=== PATIENT | female | born 1930 | race Caucasian/White ===

== ENCOUNTER 2019-03-25 16:26 | Inpatient (IN) ==
[2019-03-25 18:51] LABS: BASO# 0.01 X1000 (0.0-0.2); BASO% 0.2 % (0.0-0.8); EOS# 0.08 X1000 (0.0-0.7); EOS% 1.3 % (0.0-10.0); HEMOGLOBIN 12.6 g/dL (12.0-16.0); LYMPH# 1.39 X1000 (1.2-3.4); LYMPH% 22.2 % (20.5-51.1); MCH 27.8 PG (27-31); MCHC 31.5 g/dL (33-37); MCV 88.3 FL (81-99); MONO# 0.49 X1000 (0.11-0.59); MONO% 7.8 % (1.7-9.3); MPV 9.8 FL (7.4-10.4); NEUT% 68.5 % (42.2-75.2); PLT 283 X1000 (130-400); RBC 4.53 XMIL (4.2-5.4); RDW 15.6 % (11.5-14.5); WBC 6.27 X1000 (4.8-10.8)
[2019-03-25] MEDS ORDERED: VANCOMYCIN 1 GM/NS 1 GM/250 ML IVPB IV ONE (18:58)
--- NOTE | 2019-03-25 19:02 | PROVIDER DOCUMENTATION ---
HPI-Musculoskeletal Pain/Inj - GENERAL Chief Complaint: Extremity Pain Stated Complaint: AFC REFERRAL TOE CELLULITIS Time Seen by Provider: 03/25/19 18:26 Source: patient, family (son at bedside) - HX OF PRESENT ILLNESS-MUSKULOSKELTAL Nature of Presenting Problem: 88 YO F pmh for neuropathy, follows with Dr. Wise- [facility], sent to ED by AF for non healing cellulitis of 3rd digit of right foot. Pt states she has been on PO abx x3 weeks but now has worsening redness. Denies fever, and no pain 2/2 to neuropathy. Denies DM. Quality of Pain: reports: none Onset/Duration: other (3 weeks) Timing: still present, getting worse Any recent injury?: No Locality of Occurance: Home Similar Symptoms Previously?: Yes Recently seen or treated by another doctor?: Yes Review of Systems - Adult - REVIEW OF SYSTEMS - ADULT Constitutional: denies: chills, fever Eyes: reports: no symptoms reported Ears, Nose, Mouth & Throat: reports: no symptoms reported Cardiovascular: denies: chest pain, edema Respiratory: denies: shortness of breath, wheezing Gastrointestinal: denies: nausea, vomiting Genitourinary: reports: no symptoms reported Musculoskeletal: reports: see HPI Integumentary: reports: see HPI Neurological: reports: no symptoms reported Past History - Adult - PAST MEDICAL HISTORY-ADULT Review of Records: reports: Old Records Reviewed, Social history reviewed & non- contributory. Major Childhood Illnesses: reports: denies history Cardiovascular: reports: A-Fib, CAD, CHF, HTN, murmur Respiratory: reports: denies history Gastrointestinal: reports: GERD Obstetrical/Gynecological: reports: denies history Genitourinary: reports: denies history Musculoskeletal: reports: other (neuropathy) Neurological: reports: denies history Psychiatric: reports: denies history Endocrine/Immune: reports: RA - PRIOR SURGERIES/PROCEDURES Surgical/Procedure History: reports: appendectomy, orthopedic (extremity) (toe Sx ), other (cataract Sx, eye Sx to correct a cross-eyed state, exploratory). denies: recent surgery - IMMUNIZATION STATUS Childhood Immunizations: UTD Flu Vaccine: UTD - FAMILY HISTORY Family History: reviewed, not pertinent - SOCIAL HISTORY Smoking: denies Substance Use: denies Living Situation: alone Physical Exam-Injury Related - Physical Exam-Injury Related Initial Vital Signs Reviewed: Yes General Appearance: appears well, alert, no apparent distress Eyes: PERRL/EOMI, pink conjunctivae, other (strabismus) Head, Ears, Nose, Mouth & Throat: normocephalic/atraumatic, moist mucous membranes Neck: full range of motion, supple Respiratory: lungs clear, normal breath sounds Cardiovascular: normal peripheral pulses, regular rate, rhythm Abdominal Exam: non tender, soft Extremity: other (right foot with multiple toe amputations and 3rd digit with swelling and erythema. Left foot also with second digit with swelling and erythema, and erythema to sole of foot as well on the ball of foot. good pedal pulses and ROM of toes.) Integumentary: other (as above) Neurologic: grossly normal Psych/Mental Status: normal mood/affect, oriented x 3 Progress - PLAN OF CARE/RESULTS Progress/Plan/Lab Results: Vital Signs - 8 hr 03/25/19 16:28 03/25/19 18:15 03/25/19 18:17 Temperature 98.1 F Pulse Rate 75 Respiratory Rate 16 Blood Pressure 175/76 186/87 O2 Sat by Pulse Oximetry 98 96 96 03/25/19 18:23 03/25/19 18:30 03/25/19 18:45 Temperature Pulse Rate Respiratory Rate Blood Pressure 180/70 O2 Sat by Pulse Oximetry 99 97 99 03/25/19 18:46 03/25/19 19:00 03/25/19 19:01 Temperature Pulse Rate Respiratory Rate Blood Pressure 170/70 187/55 O2 Sat by Pulse Oximetry 99 99 99 03/25/19 19:15 03/25/19 19:30 03/25/19 19:31 Temperature Pulse Rate Respiratory Rate Blood Pressure 170/86 O2 Sat by Pulse Oximetry 98 99 99 Laboratory Results - last 24 hr 03/25/19 03/25/19 18:22 18:22 WBC 6.27 RBC 4.53 Hgb 12.6 Hct 40.0 MCV 88.3 MCH 27.8 MCHC 31.5 L RDW Std Deviation 15.6 H Plt Count 283 MPV 9.8 Immature Gran % (Auto) 0.0 Neut % (Auto) 68.5 Lymph % (Auto) 22.2 [place] % (Auto) 7.8 Eos % (Auto) 1.3 Baso % (Auto) 0.2 Immature Gran # (Auto) 0.00 Neut # (Auto) 4.30 Lymph # (Auto) 1.39 [place] # (Auto) 0.49 Eos # (Auto) 0.08 Baso # (Auto) 0.01 Sodium 147 H Potassium 3.8 Chloride 108 H Carbon Dioxide 26 Anion Gap 13 BUN 20 Creatinine 0.8 Estimated GFR/1.73 m2 > 60 BUN/Creatinine Ratio 25 Glucose 99 Calculated Osmolality 295 Calcium 9.0 Total Bilirubin 0.27 AST 14 ALT 11 Alkaline Phosphatase 48 Total Protein 6.8 Albumin 4.2 Globulin 2.6 Albumin/Globulin Ratio 1.6 Orders Category Date Time Status FOOT COMPLETE LEFT [RAD] Stat Exams 03/25/19 20:02 Completed FOOT COMPLETE RIGHT [RAD] Stat Exams 03/25/19 20:02 Completed BLOOD CULTURE [BLDCUL] Stat Lab 03/25/19 19:15 Results CBC WITH ELECTRONIC DIFF [HEME] Stat Lab 03/25/19 18:22 Completed CMP [COMPREHENSIVE METABOLIC PANEL] [CHEM] Stat Lab 03/25/19 18:22 Completed Vancomycin 1 gm/Ns Med 03/25/19 18:58 Discontinued 1 gm in 250 ml IV NOW labs stable. admission for failing outpt abx therapy and possible osteomyelitis of toe of right foot. Result Diagrams: 03/25/19 18:22 03/25/19 18:22 - XRAY 1 XRAY: Left XRAY Study: Foot Impression: See EMR Report (EXAM: FOOT COMPLETE LEFT INDICATION: infection TECHNIQUE: 3 views COMPARISON: None. FINDINGS: There are mild IP joint degenerative changes. There is minimal bone spurring at the calcaneus and at the base of the fifth metatarsal. There is no discrete fracture, dislocation, or significant intrinsic osseous lesion, otherwise. Specifically, no discrete focal bony erosion is identified to indicate osteomyelitis by plain radiograph on the current study. There is minimal soft tissue edema associated with the hindfoot and ankle. IMPRESSION: Mild degenerative changes as described. No radiogr aphic evidence of osteomyelitis on the current study. Electronically signed by Frank Carbajal 03/25/2019 8:19 PM) 2 XRAY: Right XRAY Study: Foot Impression: See EMR Report (EXAM: FOOT COMPLETE RIGHT INDICATION: infection TECHNIQUE: 3 views COMPARISON: 09/18/2015 FINDINGS: Since the previous study, there has been amputation of the first and second toes at the proximal IP joints. There is a stable metallic screw fusing the IP joints of the third toe. There is slight irregularity involving the distal phalanx of the fourth toe that is not identified on the previous study. This is of unknown acuity. However, osteomyelitis cannot be excluded. A bone scan or MRI may be helpful if confirmation is necessary. There is mild bone spurring at the calcaneus and dorsal aspect of the midfoot that is unchanged. There is no discrete fracture, dislocation, or significant intrinsic osseous lesion, otherwise. There is mild soft tissue edema at the dorsum of the forefoot and around the ankle. IMPRESSION: 1.Interval amputation of the first and second toes at the proximal IP joints. 2.Subtle irregularity involving the distal phalanx of the fourth toe that appears more prominent than the previous study. Although it is of unknown acuity, this could indicate osteomyelitis. Please see above discussion.) - CONSULTS/PCP/HOSPITALIST Notification #1 *Consult/PCP/Hospitalist*: Dr. Son Time Discussed: 21:42 Consult Disposition: Will see in ED, Admit Departure - Departure Date of Disposition Decision: 03/25/19 Time of Disposition Decision: 21:45 DIAGNOSIS: Cellulitis of toe of left foot, Cellulitis of toe of right foot Disposition: ADMITTED INPATIENT 09 Certified Medical Emergency: Emergent Condition: Stable Referrals and Follow-Ups: Michael Lamb MD [Primary Care Provider] - - Critical Care Note This patient required my direct & personal management of CC.: No Attestation - Physician/ SHIN Attestation The physician spent face to face time with patient:: Yes Advanced Practice Provider documentation review:: Supervising physician onsite and consulted in the evaluation and care of this patient. The physician did have a face to face encounter with the patient.
[2019-03-25 19:34] LABS: AGAP 13; ALB/GLOB RATIO 1.6; ALBUMIN 4.2 g/dL (3.5-5.0); ALKALINE PHOSPHATASE 48 U/L (32-104); BUN 20 mg/dL (8-22); CHLORIDE 108 mmol/L (98-107); COSMO 295; CREATININE 0.8 mg/dL (0.5-0.9); ESTIMATED GFR > 60; GLUCOSE 99 mg/dL (70-104); GOT 14 U/L (10-30); GPT 11 U/L (10-36); POTASSIUM 3.8 mmol/L (3.5-5.1); SODIUM 147 mmol/L (136-145); TCO2 26 mmol/L (25-35); TOTAL BILIRUBIN 0.27 mg/dL (0.20-1.00); TOTAL PROTEIN 6.8 g/dL (6.3-8.3)
--- NOTE | 2019-03-25 20:21 | Diag Imaging Result Doc PS360 ---
EXAM: FOOT COMPLETE LEFT INDICATION: infection TECHNIQUE: 3 views COMPARISON: None. FINDINGS: There are mild IP joint degenerative changes. There is minimal bone spurring at the calcaneus and at the base of the fifth metatarsal. There is no discrete fracture, dislocation, or significant intrinsic osseous lesion, otherwise. Specifically, no discrete focal bony erosion is identified to indicate osteomyelitis by plain radiograph on the current study. There is minimal soft tissue edema associated with the hindfoot and ankle. IMPRESSION: Mild degenerative changes as described. No radiographic evidence of osteomyelitis on the current study. Electronically signed by Frank Carbajal 03/25/2019 8:19 PM
--- NOTE | 2019-03-25 20:27 | Diag Imaging Result Doc PS360 ---
EXAM: FOOT COMPLETE RIGHT INDICATION: infection TECHNIQUE: 3 views COMPARISON: 09/18/2015 FINDINGS: Since the previous study, there has been amputation of the first and second toes at the proximal IP joints. There is a stable metallic screw fusing the IP joints of the third toe. There is slight irregularity involving the distal phalanx of the fourth toe that is not identified on the previous study. This is of unknown acuity. However, osteomyelitis cannot be excluded. A bone scan or MRI may be helpful if confirmation is necessary. There is mild bone spurring at the calcaneus and dorsal aspect of the midfoot that is unchanged. There is no discrete fracture, dislocation, or significant intrinsic osseous lesion, otherwise. There is mild soft tissue edema at the dorsum of the forefoot and around the ankle. IMPRESSION: 1.Interval amputation of the first and second toes at the proximal IP joints. 2.Subtle irregularity involving the distal phalanx of the fourth toe that appears more prominent than the previous study. Although it is of unknown acuity, this could indicate osteomyelitis. Please see above discussion. Electronically signed by Frank Carbajal 03/25/2019 8:25 PM
[2019-03-25 22:16] LABS: URINE SOURCE CLEAN CATCH
[2019-03-25 22:22] LABS: BILIRUBIN URINE NEGATIVE (NEGATIVE); BLOOD URINE MODERATE (NEGATIVE); COLOR YELLOW; GLUCOSE URINE 150 mg/dL (NEGATIVE); KETONE URINE NEGATIVE (NEGATIVE); LEUKOCYTES URINE LARGE (NEGATIVE); NITRITE URINE NEGATIVE (NEGATIVE); PROTEIN URINE TRACE mg/dL (NEGATIVE); SP GRAVITY URINE 1.017; TURBIDITY URINE HAZY (CLEAR); UROBILINOGEN URINE NORMAL (NORMAL)
[2019-03-25 22:23] LABS: UR EPITHELIAL CELLS <10 /HPF (<10); URINE BACTERIA NEGATIVE /HPF; URINE RBC TNTC /HPF (<10); URINE WBC TNTC /HPF (<10)
[2019-03-25] MEDS ORDERED: ULTRAM PO PRN (23:36)
[2019-03-25] MEDS ORDERED: NEURONTIN PO PRN (23:36)
[2019-03-25] MEDS ORDERED: VANCOMYCIN IV PER PHARMACY MISC SCH (23:36)
[2019-03-25] MEDS ORDERED: PEPCID PO PRN (23:36)
[2019-03-25] MEDS ORDERED: DESYREL PO PRN (23:36)
[2019-03-25] MEDS ORDERED: TYLENOL PO PRN (23:36)
--- NOTE | 2019-03-26 00:07 | HISTORY AND PHYSICAL ---
ADDENDUM Ms. Ngoc Bellamy is a 88-year-old woman who has history of peripheral neuropathy and atrial fibrillation. Came in today for 2-day history of erythema of her right 4th toe. Denies any pain, fever or chills. General exam of systems is normal, other than irregular heartbeat in the Cardiac exam. She has erythema of the entire 4th right toe. No tenderness. No fluctuance. X-ray hinted at the possibility of osteomyelitis. Plan will include an MRI to confirm this, i.e. osteomyelitis; then, start patient on vancomycin and clindamycin. Sedimentation rate, C-reactive protein can be ordered, baseline one, and this can be trended as needed. cc: MD Michael Dyer MD
[2019-03-26] MEDS: CLINDAMYCIN 300 MG in NS 50 ML IV SCH ×2 (00:27→19:47)
--- NOTE | 2019-03-26 00:32 | HISTORY AND PHYSICAL ---
PRIMARY CARE PROVIDER: Dr. Michael Lamb. DATE AND TIME: 03/25/2019 at 2230. CHIEF COMPLAINT: Right 4th toe swelling and erythema. HISTORY OF PRESENT ILLNESS: Ms Bellamy is an 88-year-old female with a past medical history most notable for hypertension, atrial fibrillation on chronic anticoagulation with Xarelto, neuropathy, and history of osteomyelitis in the past. The patient previously did have cellulitis and osteomyelitis in her right 1st and 2nd toes, and did undergo a partial amputation on both of these with Dr. Lawson previously. The patient states that for approximately 3 weeks now that she has had worsening erythema. She was initially seen by Dr. Salinas and an urgent care, though was recommended to come to the ER due to worsening symptoms. The patient was previously taking antibiotic which from my understanding was Bactrim, and most recently doxycycline that was prescribed by Dr. Salinas. The patient states that today she woke up and not only was the erythema worse, her right 4th toe was much more swollen as well. Though she does have neuropathy in her right foot, she was not reporting any pain. She denies any fever, body aches, or chills. She also denies any headache, dizziness, chest pain, shortness of breath or cough. She denies any nausea, vomiting, or diarrhea. She denies any abdominal pain, dysuria or urinary frequency. Other than her symptoms she reports on her right foot, she denies any other pain or swelling in her extremities. Upon evaluation in the ER, the patient was noted to have swelling and erythema noted to her right 4th toe. On the plantar side of her right 4th toe she does have a callus that is approximately the size of the end of #2 pencil eraser, though the wound does not appear to be open or have any drainage noted at this time. The patient does have neuropathy in her bilateral lower extremities, though states this has not worsened. Other than this, pulse and motor is intact in both extremities. Pedal pulses were 3+ bilaterally. Though the patient is not reporting any symptoms in her left foot, on the plantar surface of her left foot in the ball area, she does have area approximately the size of a half-dollar coin that appears to have erythema and does feel softer than the surrounding area. Blood cultures were obtained in the ER. She has been given initial dose of vancomycin. She will be placed inpatient for admission. REVIEW OF SYSTEMS: A 14-point review of systems was conducted with the patient and all were negative, except for pertinent positives mentioned above HPI. PAST MEDICAL HISTORY: 1. History of hypertension. The patient states that she has been taken off her blood pressure medication. 2. Osteoarthritis. The patient reports that she did receive a steroid injection a few weeks ago for treatment of pain associated with this. 3. Gastroesophageal reflux disease. 4. Neuropathy. 5. Lumbar stenosis. 6. Atrial fibrillation, on chronic anticoagulation with Xarelto. 7. History of osteomyelitis in the past in her right 1st and 2nd toes, for which she did undergo a partial amputation on both of these with Dr. Lawson. 8. 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 9. Cataracts. PAST SURGICAL HISTORY: 1. Right great and 2nd toe amputation secondary to osteomyelitis. 2. Cholecystectomy. 3. Total hysterectomy. 4. Exploratory laparotomy. 5. Cataract surgery. 6. Laser surgery for ophthalmic aneurysm in her right eye. SOCIAL HISTORY: The patient is a homemaker. She currently lives at home by herself, though her son who was present at bedside during my examination, does live within approximately 3 miles of her and does check on her very frequently. She does currently use ambulatory assistance of a cane and a walker at times. She has no known past or present tobacco, alcohol or illicit drug use history. FAMILY HISTORY: The patient's Mother did pass away at age 90 secondary to complications of a stroke. Her Father at age 98 secondary to natural causes. ALLERGIES: Patient has no known allergies. HOME MEDICATIONS: 1. Amiodarone 100 mg p.o. daily. 2. Doxycycline 100 mg p.o. b.i.d. 3. Famotidine 20 mg p.o. with lunch as needed. 4. Gabapentin 300 mg p.o. t.i.d. p.r.n. for neuropathy. 5. Reglan 5 mg p.o. t.i.d. before meals p.r.n. 6. MiraLAX 17 g p.o. q.a.m. 7. Xarelto 20 mg p.o. with supper. 8. Flomax 0.4 mg p.o. with supper. 9. Tramadol 50 mg p.o. p.r.n. as directed, though the patient states that she usually only takes this approximately once a week. 10. Trazodone 50 mg p.o. at bedtime. DIAGNOSTIC DATA: White blood cell count 6270, hemoglobin 12.6, hematocrit 40, platelet count is 283,000. Sodium 147, potassium 3.8, chloride 108, serum bicarb 26, BUN 20, creatinine 0.8 with a GFR greater than 60. Glucose 99, calcium 9. Liver function tests are within normal limits. Urinalysis was obtained via clean catch, was positive for trace protein, 150 glucose, moderate blood, large leukocytes, too numerous to count white blood cells, and too numerous to count red blood cells, had less than 10 epithelial cells and was negative for bacteria. Pending laboratory studies at this time include blood cultures and urine culture. X-ray of the left foot showed mild degenerative changes, though no radiographic evidence of osteomyelitis. X-ray of the right foot showed interval amputation of the 1st and 2nd toes at the proximal IP joints. There was a subtle irregularity involving the distal phalanx of the 4th toe that appears more prominent than the previous study, although it is of unknown acuity. This could indicate osteomyelitis. Please see full radiologist's findings for further details. PHYSICAL EXAMINATION: VITAL SIGNS: Heart rate 71, blood pressure 170/86, oxygen saturation is 99% on room air. Temperature of 98.1 degrees. GENERAL: Ms. Bellamy is a very pleasant, 88-year-old, elderly female. She was resting in the ER stretcher. She was in no acute distress. She was awake, alert, and able to answer all questions appropriately. HEENT: Head atraumatic, normocephalic. Pupils are equal, round, reactive to light, were 3 mm bilaterally and brisk. Oral mucosa was moist. Oropharynx was clear. NECK: Supple. Trachea midline. CARDIOVASCULAR: Patient has S1, S2 present. No murmurs, gallops, rubs appreciated with a regular rate and rhythm. PULMONARY: Patient has symmetrical chest expansion bilaterally. Lung sounds are clear to auscultation in bilateral full schmidt. ABDOMEN: Soft, nontender, nondistended. Bowel sounds were present in all 4 quadrants, were normoactive. EXTREMITIES: No cyanosis or edema present. The patient does have loss of sensation secondary to neuropathy, though states this has not worsened from her baseline. Pulse and motor are intact. Radial and pedal pulses were 2+ bilaterally. The patient's right 4th toe does have erythema and swelling noted. On the plantar surface of this toe she also does have a callus noted as well. It is approximately the size of the end of #2 pencil eraser. The wound does not appear to be open and there was no drainage present. On the patient's plantar surface of her left foot, she also does have an area of erythema that is approximately the size of a half dollar coin. It does feel softer than surrounding area. INTEGUMENTARY: The patient's skin is pink, warm and dry, except for above abnormalities mentioned in the extremity exam. NEUROLOGICAL: Patient is alert and oriented to person, place, time and situation. She is able to move all extremities. She does have history of neuropathy, though states this is at its baseline. There were no other focal neurological deficits noted. ASSESSMENT AND PLAN: 1. Cellulitis of the right 4th toe, also rule out possible osteomyelitis in the right 4th toe as well. For treatment of this, the patient will be placed on antibiotics of vancomycin and clindamycin. Blood cultures have been obtained. We have consulted Dr. Salinas as well since he has been treating the patient outpatient for this recently. We will also order an MRI for Thursday of the right lower extremity. We will await Orthopedic consultation and diagnostic results and continue to follow. 2. Atrial fibrillation. We will continue the patient's amiodarone. She will be placed on continuous cardiac telemetry. 3. Chronic anticoagulation with Xarelto for history of atrial fibrillation. We will continue this as well. 4. Neuropathy. We will continue the patient's gabapentin. 5. Asymptomatic bacteriuria. The patient is not reporting any dysuria or urinary frequency. She does not have any fever, body aches, or chills either. We have placed an order for urine culture. We will await those results and continue to follow. 6. Deep vein thrombosis prophylaxis is being provided with previously mentioned Xarelto. The patient has been placed on the medical floor with telemetry. She will have vital signs every 8 hours with strict intake and output. We will repeat a CBC, BMP in the morning. Further orders and recommendations pending hospital course, diagnostic studies, and physician evaluation. Dictated by MANN Tan for Ana Son MD cc: MD Michael Dyer MD [facility]
[2019-03-26] MEDS: FLOMAX PO SCH ×2 (01:02→21:21)
[2019-03-26] MEDS: XARELTO PO SCH ×2 (01:02→21:21)
[2019-03-26 08:01] LABS: BASO# 0.01 X1000 (0.0-0.2); BASO% 0.2 % (0.0-0.8); EOS# 0.12 X1000 (0.0-0.7); EOS% 2.9 % (0.0-10.0); HEMATOCRIT 36.4 % (37.0-47.0); HEMOGLOBIN 11.4 g/dL (12.0-16.0); LYMPH# 1.12 X1000 (1.2-3.4); LYMPH% 27.1 % (20.5-51.1); MCH 27.6 PG (27-31); MCHC 31.3 g/dL (33-37); MCV 88.1 FL (81-99); MONO# 0.34 X1000 (0.11-0.59); MONO% 8.2 % (1.7-9.3); MPV 9.9 FL (7.4-10.4); NEUT# 2.54 X1000 (1.4-6.5); NEUT% 61.6 % (42.2-75.2); PLT 261 X1000 (130-400); RBC 4.13 XMIL (4.2-5.4); RDW 15.3 % (11.5-14.5); WBC 4.13 X1000 (4.8-10.8)
[2019-03-26 08:23] LABS: AGAP 12; BUN 16 mg/dL (8-22); CALCIUM 8.2 mg/dL (8.8-10.2); CHLORIDE 105 mmol/L (98-107); COSMO 282; CREATININE 0.6 mg/dL (0.5-0.9); ESTIMATED GFR > 60; GLUCOSE 93 mg/dL (70-104); POTASSIUM 4.1 mmol/L (3.5-5.1); SODIUM 141 mmol/L (136-145); TCO2 24 mmol/L (25-35)
[2019-03-26] MEDS ORDERED: SEPTRA DS PO SCH (09:45)
[2019-03-26] MEDS: CORDARONE PO SCH (10:46)
[2019-03-26] MEDS: MIRALAX PO SCH (10:47)
[2019-03-26] MEDS: ZOFRAN IV PRN ×2 (12:05→15:58)
--- NOTE | 2019-03-26 15:28 | ORTHOPAEDICS CONSULTATION ---
DATE: 03/26/2019 REASON FOR CONSULTATION: Left toe pain. HISTORY: She has been followed by Dr. Brad Man in our clinic on an outpatient basis. She is admitted to the hospital with increasing redness and swelling over the left 3rd toe. She is admitted by the hospitalist or Dr. Lamb and placed on IV antibiotics. She states she is already feeling better. ALLERGIES/MEDICATIONS: As listed per intake form. PAST MEDICAL HISTORY/SOCIAL HISTORY: Accurate on the chart. PHYSICAL EXAM: Examination reveals some healthy bleeding around the toe without any marcial purulent discharge over the 3rd toe. There is mild hyperemia of the toe. There is no abscess. There is no evidence of gangrene or necrosis. The tissue all appears to be viable. She has good capillary refill. There is no extension up beyond the 3rd toe. ASSESSMENT: Cellulitis, left 3rd toe. PLAN: The patient is already responding IV antibiotics. I would recommend continuing this and she can possibly be discharged on Thursday or Thursday to follow up with Dr. Salinas in the office for continued maintenance and care. We will ask nursing staff to go ahead and change the dressing 2 to 3 times a day. cc: MD Michael Mclean MD
[2019-03-26] MEDS ORDERED: SODIUM CHLORIDE 0.9% INJ PRN (18:24)
[2019-03-26] MEDS ORDERED: PHENERGAN IV PRN (18:24)
[2019-03-26] MEDS: ROCEPHIN 1 GM in NS 50 ML IV SCH (21:21)
[2019-03-27] MEDS: MIRALAX PO SCH (10:00)
[2019-03-27] MEDS: CORDARONE PO SCH (10:00)
--- NOTE | 2019-03-27 10:41 | PROGRESS NOTE ---
DATE: 03/27/2019 SUBJECTIVE: The patient's chart was reviewed. In summary, the patient was admitted on 03/25/2019 with suspected cellulitis to the right fourth toe. A full evaluation was pursued. X-ray suggested a subtle irregularity involving the distal phalanx of the fourth toe that appears more prominent than previous study. A concern for osteomyelitis was raised. The patient was placed on IV antibiotics. Orthopedic surgery was consulted. No further intervention has been recommended today. Over the course of the last 24 hours, the patient complained of significant nausea. I was contacted yesterday evening, with persistent nausea through the day despite antiemetic agents. The patient had been placed on Septra therapy yesterday morning. This was discontinued. Vancomycin was continued. Rocephin was added. This morning, the patient states she feels better. Nausea has decreased. She denies fevers, chills, vomiting, shortness of breath, or chest discomfort. She denies significant pain to the feet. OBJECTIVE: T-max 98.5 degrees, heart rate 74 to 85, respirations 12 to 20, blood pressure 131- 181/48-66. General: No acute distress. Cardiovascular: Regular rate and rhythm. No significant murmurs, rubs, or gallops. Pulmonary: Clear to auscultation bilaterally. Abdomen: Soft, nontender, nondistended. Positive bowel sounds. Extremities: Moves all extremities well. No clubbing, cyanosis, or edema. Dermatologic: Evaluation reveals a small ulceration to the distal right fourth toe with surrounding erythema but no evidence of tracking proximally. The area is clean. Mild erythema to the left second toe. Laboratory Data: None. ASSESSMENT AND PLAN: 1. Left second toe and right fourth toe cellulitis with possible osteomyelitis of the right fourth toe per x-ray-as above, the patient's epidural was discontinued yesterday secondary to nausea. Vancomycin was continued. Because of her risk, Rocephin was added. This morning, patient is feeling well. MRI is scheduled for the morning to rule out osteomyelitis. 2. Nausea-as above, patient has achieved improvement with discontinuing Septra. We will remain aware. 3. Atrial fibrillation-patient appears to be in a sinus-generated rhythm per examination today. She is on amiodarone. She is anticoagulated. We will remain aware. 4. Neuropathy-we will continue patient on gabapentin therapy. 5. Disposition-at this point, patient continues to require [facility] care in a hospital setting. We will plan discharge home once appropriate. cc: MD Michael Fischer MD
[2019-03-27] MEDS: FLOMAX PO SCH (17:51)
[2019-03-27] MEDS: XARELTO PO SCH (17:51)
[2019-03-27] MEDS ORDERED: VANCOMYCIN 1 GM/NS 1 GM/250 ML IVPB IV SCH (20:00)
[2019-03-27] MEDS: ROCEPHIN 1 GM in NS 50 ML IV SCH (23:52)
[2019-03-28] MEDS: ZOFRAN IV PRN (06:57)
[2019-03-28] MEDS: CORDARONE PO SCH (09:45)
[2019-03-28] MEDS: MIRALAX PO SCH (09:45)
[2019-03-28] MEDS: KEFZOL 1 GM/D5W 1 GM/50 ML IVPB IV SCH ×2 (09:48→16:43)
--- NOTE | 2019-03-28 10:58 | Diag Imaging Result Doc PS360 ---
MRI LOW EXTREMTY W/O CON-RIGHT - 03/28/2019 INDICATION: Cellulitis Right 4th Toe,R/O Poss. Osteomyelitis TECHNIQUE: MRI right foot COMPARISON: X-rays 03/25/2019 FINDINGS: There is relatively severe patient motion artifact. There is hyperintense signal throughout the soft tissues surrounding the fourth toe and at the plantar surface of the lateral distal forefoot. This is consistent with moderate cellulitis. No evidence of fluid collection. There is hyperintense bone marrow edema at the distal phalanx of the fourth toe. This is highly concerning for osteomyelitis here. Other bones are normal in signal. IMPRESSION: Cellulitis over the fourth toe and lateral distal plantar forefoot. Osteomyelitis of the distal phalanx of the fourth toe. Electronically signed by Shahriar Leiva 03/28/2019 10:56 AM
[2019-03-28] MEDS: FLOMAX PO SCH (16:43)
[2019-03-28] MEDS: XARELTO PO SCH (16:43)
--- NOTE | 2019-03-28 18:58 | ORTHOPAEDICS PROGRESS NOTE ---
DATE: 03/28/2019 SUBJECTIVE DATA: Ms. Bellamy is seen for her cellulitis of her right 4th toe. She states she has had this for a while and been treated with Bactrim and doxycycline without much help. She states the pain is not that bad right now around 2 to 3/10. She states she does still have some numbness and tingling in bilateral lower extremities. She reports she has had this for some time. She states she was admitted to the hospital, and they have been given her IV antibiotics for her cellulitis in this foot. OBJECTIVE DATA: Upon examination, there are good pedal pulses in the right lower extremity. There is decreased sensation. There is decreased capillary refill in the right fourth toe. There is obvious redness with erythema and drainage coming from the right fourth toe. There is about a 2 mm size hole near the distal phalanx portion of the toe. CURRENT LABS: White blood cell 4.13, hemoglobin 11.4, hematocrit 36.4, platelets 261,000. Sodium 141, potassium 4.1, chloride 105, BUN 16, creatinine 0.6, glucose 93, calcium is 8.2. Urine showed trace protein and 150 glucose. There is also moderate blood and large amount leukocytes. Review of MRI of the right lower extremity does show cellulitis of the 4th toe and lateral distal plantar forefoot. It does report some osteomyelitis of the distal phalanx of the 4th toe. ASSESSMENT: Cellulitis with osteomyelitis of the right lower extremity and 4th toe. Plan to talk to Dr. Salinas and come up with a plan for this patient. The plan right now would be to go ahead and surgically remove the toe. Dr. Salinas will review the MRI and see where he would like to surgically debride the toe. I have talked to the patient and family, and they are more than welcome to do this. We will come back to talk to them later. Dictated by MANN Morse for Saulo Salinas MD cc: MANN Morse MD Russell T. Barr, MD
[2019-03-29] MEDS: KEFZOL 1 GM/D5W 1 GM/50 ML IVPB IV SCH ×3 (00:15→16:32)
[2019-03-29] MEDS ORDERED: ZOFRAN ODT PO PRN (08:42)
[2019-03-29] MEDS: CORDARONE PO SCH (10:09)
[2019-03-29] MEDS: MIRALAX PO SCH (10:09)
[2019-03-29] MEDS: NORVASC PO SCH (10:12)
[2019-03-29] MEDS: REGLAN PO SCH ×2 (11:22→16:32)
[2019-03-29 15:48] LABS: URINE SOURCE CATH
[2019-03-29 15:53] LABS: BILIRUBIN URINE NEGATIVE (NEGATIVE); BLOOD URINE TRACE (NEGATIVE); COLOR YELLOW; GLUCOSE URINE NEGATIVE (NEGATIVE); KETONE URINE TRACE mg/dL (NEGATIVE); LEUKOCYTES URINE NEGATIVE (NEGATIVE); NITRITE URINE NEGATIVE (NEGATIVE); PROTEIN URINE TRACE mg/dL (NEGATIVE); SP GRAVITY URINE 1.017; TURBIDITY URINE CLEAR (CLEAR); UROBILINOGEN URINE NORMAL (NORMAL)
[2019-03-29 15:55] LABS: UR EPITHELIAL CELLS <10 /HPF (<10); URINE BACTERIA NEGATIVE /HPF; URINE RBC <10 /HPF (<10); URINE WBC <10 /HPF (<10)
[2019-03-29] MEDS: FLOMAX PO SCH (16:32)
--- NOTE | 2019-03-29 18:57 | ORTHOPAEDICS PROGRESS NOTE ---
DATE: 03/29/2019 SUBJECTIVE: Ms. Bellamy is lying in the bed this morning, eating lunch. Overall feeling a lot better. OBJECTIVE: Right lower extremity exam: She does still have a wound on the distal tip of the 4th toe. It is still slightly erythematous as well. That erythema does not extend past the base of the toe. ASSESSMENT: Right 4th toe infection with osteomyelitis. PLAN: I discussed with Ms. Bellamy about this toe, and I have been seeing her a lot in clinic. Unfortunately, it is not getting better. It looks like, from the MRI, that she has osteomyelitis in the toe, so I discussed with her about definitive treatment which really would be a 4th toe amputation. She is agreeable to that now, so I discussed with her about right 4th toe amputation at the metatarsophalangeal joint. I went over with her the procedure, risks, benefits, potential complications. Risks include, but are not limited to, infection, wound healing problems, damage to nerves, arteries, veins, numbness, phantom limb pain, anesthesia-related risks, and DVT. After discussing with the patient, she expressed understanding and wished to proceed. We will plan on getting everything set up for tomorrow around noon. She will be n.p.o. after midnight tonight, and we will plan on doing a right 4th toe amputation. cc: MD Michael Hines MD
[2019-03-30] MEDS: KEFZOL 1 GM/D5W 1 GM/50 ML IVPB IV SCH ×3 (00:31→17:17)
[2019-03-30] MEDS: REGLAN PO SCH ×3 (06:13→17:16)
--- NOTE | 2019-03-30 07:04 | EKG Report ---
Test Performed on : 03/30/2019 06:16:18 AM Test Reason : chronic A-fib Blood Pressure : / mmHG Vent. Rate : 078 BPM Atrial Rate : 078 BPM P-R Int : 190 ms QRS Dur : 088 ms QT Int : 402 ms P-R-T Axes : 090 -34 072 degrees QTc Int : 458 ms Normal sinus rhythm. Left axis deviation Abnormal ECG When compared with ECG of 17-SEP-2017 06:47, premature supraventricular complexes. are no longer present Unconfirmed Result
[2019-03-30] MEDS: NORVASC PO SCH (08:01)
[2019-03-30] MEDS: CORDARONE PO SCH (08:01)
[2019-03-30] MEDS ORDERED: DIPRIVAN 1% ONE (11:27)
[2019-03-30] MEDS ORDERED: ROBINUL ONE (11:28)
[2019-03-30] MEDS ORDERED: XYLOCAINE-MPF 2% ONE (11:28)
[2019-03-30] MEDS ORDERED: TORADOL ONE (11:53)
[2019-03-30] MEDS ORDERED: MARCAINE 0.25% ONE (12:03)
[2019-03-30] MEDS ORDERED: XYLOCAINE 1% ONE (12:03)
--- NOTE | 2019-03-30 12:14 | ORTHOPAEDICS PROGRESS NOTE ---
DATE: 03/30/2019 SUBJECTIVE: Ms. Bellamy is lying in bed this morning. Overall, she is a little bit nauseated but feeling okay. OBJECTIVE: On right lower extremity exam, she still has a little bit of erythema to that fourth toe. There is still that open wound on the bottom. It looks unchanged from yesterday. ASSESSMENT: Right fourth toe infection with osteomyelitis. PLAN: I discussed with Ms. Bellamy again about surgical intervention. She is still okay with proceeding with a right fourth toe amputation. She is NPO and we will plan on doing this today. cc: MD Michael Hines MD
[2019-03-30] MEDS: MIRALAX PO SCH (15:15)
[2019-03-30] MEDS: FLOMAX PO SCH (17:16)
--- NOTE | 2019-03-30 20:14 | OPERATIVE NOTE ---
PROCEDURE DATE: 03/30/2019 PREOPERATIVE DIAGNOSIS: Right 4th toe osteomyelitis. POSTOPERATIVE DIAGNOSIS: Right 4th toe osteomyelitis. PROCEDURE: Right 4th toe amputation around the metatarsophalangeal joint. SURGEON: Saulo Salinas MD [employer]: MANN Thorpe, who was an integral part of the case, helping with all aspects of the case, helping to increase our OR efficiency greatly. ANESTHESIA: MAC anesthesia. ESTIMATED BLOOD LOSS: About 20 mL. DISPOSITION: To PACU, hemodynamically stable. INDICATION FOR PROCEDURE: Ms Bellamy is an 88-year-old female, who has had toes amputated the past secondary to osteomyelitis. Unfortunately this 4th toe has gotten an ulcer and osteomyelitis in the tip. She has been in the hospital on IV antibiotics, and her cellulitis has gotten better. I discussed with her about amputating the tip of that 4th toe, and she expressed understanding and wished to proceed. DESCRIPTION OF PROCEDURE: Ms Bellamy was identified in the preoperative holding area. Right 4th toe was marked as correct surgical site. She was then wheeled to the operating room, placed supine on the operating table. All bony prominences were well padded. She was induced under MAC anesthesia. Right lower extremity then prepped with chlorhexidine gluconate scrub and ChloraPrep and draped in normal sterile fashion. Surgical pause was performed. We identified the correct patient, correct side, and the correct procedure. Preoperative antibiotics had not been given because she was already on scheduled antibiotics. I used a combination of 1% lidocaine and 0.5% Marcaine solution without epinephrine to anesthetize the toe. After adequate anesthesia, I then made a fishmouth-type incision right over the proximal phalanx. I then was able to use a rongeur to come right through that proximal phalanx and amputate the distal tip of the toe. We rongeured that proximal phalanx back to just the base and the tissue at that point looked really good. I did not see any purulence anywhere. There are no signs of infection. I think we got all of the infected bone out. I then closed everything in layered fashion with 2-0 Vicryl for the deep layer and the subcutaneous, and then nylon on the skin. Adaptic, 4 x 4's, Sof-Rol, and a soft dressing were applied. She was then awoken from general anesthesia, moved to her own bed, and taken to the PACU in stable condition. PLAN: Postoperatively, she is weight bear as tolerated in a postoperative shoe. cc: MD Michael Hines MD
[2019-03-31] MEDS: KEFZOL 1 GM/D5W 1 GM/50 ML IVPB IV SCH (00:17)
[2019-03-31] MEDS: REGLAN PO SCH ×3 (06:24→15:37)
[2019-03-31] MEDS ORDERED: FLU VACCINE IM ONE (08:59)
[2019-03-31] MEDS ORDERED: KEFLEX PO SCH (09:00)
[2019-03-31] MEDS: MIRALAX PO SCH (09:06)
[2019-03-31] MEDS: NORVASC PO SCH (09:07)
[2019-03-31] MEDS: CORDARONE PO SCH (09:07)
--- NOTE | 2019-03-31 09:53 | DISCHARGE SUMMARY ---
ADMISSION DATE: 03/25/2019 DISCHARGE DATE: 03/31/2019 FINAL DIAGNOSES: 1. Osteomyelitis and cellulitis of the right fourth toe. 2. Essential hypertension. 3. Paroxysmal atrial fibrillation. 4. Peripheral neuropathy. PRESENT ILLNESS: Ms. Bellamy is an 88-year old woman with a past medical history of the above problems who presented on the day of admission with an approximately 2 week history of redness and swelling of her right forth toe. She had seen Dr. Salinas in his office prior to this admission and had been prescribed 2 different antibiotics which had not resulted in significant improvement. On the day of admission her redness and swelling of the right fourth toe were significantly increased. She denied pain but has nearly anesthetic feet from peripheral neuropathy. She denied any fever or chills. PHYSICAL EXAMINATION: Vital Signs: Physical examination revealed a blood pressure of 170/86 and a temperature of 98.1. General: She is a pleasant, oriented, elderly, white female in no distress. Lungs: Clear. Cardiovascular: Regular rate and rhythm. No murmurs or gallops. Extremities: Reduced sensation in both lower legs. Pedal pulses were intact. The right fourth toe was a sausage digit with swelling and redness. A distal callus was noted on the same toe. DATABASE: White blood count 6,270, hematocrit 40%, and platelet count was normal. Chemistry profile was unremarkable. HOSPITAL COURSE: She was admitted and treated with intravenous clindamycin and vancomycin. The next morning was the first opportunity for me to evaluate her. Her toe remained red and swollen. I sharply debrided her distal toe ulcer and obtained a surface wound culture which subsequently grew methicillin-sensitive Staph aureus. Her antibiotics were changed to intravenous Ancef. She continued to improve. Because of concern over osteomyelitis in the distal phalanx of the toe an MRI was done on Thursday morning and confirmed the suspicion of osteomyelitis. Dr. Salinas consulted and agreed that an amputation of the toe was indicated and this was performed on 03/30/2019. She feels well this morning and is eager to return home. She is discharged today and is to follow up with Dr. Salinas as instructed and to return to my office in 8 to 14 days for a transition of care visit. While in the hospital she was noted to have an elevated blood pressure and she had previously taken amlodipine and this was again prescribed for her and her blood pressure improved. DISCHARGE MEDICATIONS: Acetaminophen 650 mg every 6 hours p.r.n. for pain, amiodarone 100 mg daily, amlodipine 2.5 mg daily, cephalexin 500 mg every 12 hours for 5 days, famotidine 20 mg daily as needed for heartburn, gabapentin 300 mg 3 times a day, metoclopramide 5 mg 3 times a day before meals, Zofran 4 mg every 6 hours p.r.n. for nausea and vomiting, MiraLAX 17 g daily to prevent constipation, Flomax 0.4 mg with supper daily, tramadol 50 mg every 4 hours p.r.n. for pain, trazodone 50 mg nightly at bedtime p.r.n. for sleep, and Xarelto 20 mg daily with supper. cc: MD Saulo Shipman MD
[2019-03-31 14:40] VITALS: BP 147/41
== END 2019-03-31 16:19 | disposition home or self-care (01) | DRG 505 ==
LOC: ED 16:26 → 3N 23:39 → SUATTDRO 23:39
PROVIDERS: ADMIT Internal Medicine; ATTEND Internal Medicine

== ENCOUNTER 2019-09-04 14:29 | Inpatient (IN) ==
[2019-09-04] MEDS ORDERED: CLINDAMYCIN IV ONE (15:12)
--- NOTE | 2019-09-04 15:36 | Diag Imaging Result Doc PS360 ---
EXAM: FOOT COMPLETE RIGHT 09/04/2019 HISTORY: foot pain, possible osteomyelitis to second toe TECHNIQUE: Right foot three views COMMENT: There has been amputation of the distal phalanges of the first and second toes and the fourth toe at the level of the base of the proximal phalanx. There is a PN transfixing the phalanges of the third toe. There is minimal spurring of the calcaneus. No evidence of erosion or periosteal reaction is present in the second toe to suggest osteomyelitis. The appearance of the foot has not changed appreciably side from the interval amputation of the fourth toe since the previous study of 03/25/2019. IMPRESSION: No evidence of osteomyelitis in the second toe. Electronically signed by Chilango Layton 09/04/2019 3:34 PM
[2019-09-04 15:39] LABS: BASO# 0.02 X1000 (0.0-0.2); BASO% 0.1 % (0.0-0.8); EOS# 0.01 X1000 (0.0-0.7); EOS% 0.1 % (0.0-10.0); HEMATOCRIT 38.3 % (37.0-47.0); HEMOGLOBIN 12.4 g/dL (12.0-16.0); IMM GRAN# 0.04 X1000 (0.0-0.04); IMM GRAN% 0.3 % (0.0-0.5); LYMPH# 1.16 X1000 (1.2-3.4); LYMPH% 7.4 % (20.5-51.1); MCH 28.2 PG (27-31); MCHC 32.4 g/dL (33-37); MONO# 0.92 X1000 (0.11-0.59); MONO% 5.9 % (1.7-9.3); MPV 9.9 FL (7.4-10.4); NEUT# 13.48 X1000 (1.4-6.5); NEUT% 86.2 % (42.2-75.2); PLT 256 X1000 (130-400); RDW 15.4 % (11.5-14.5); WBC 15.63 X1000 (4.8-10.8)
[2019-09-04] MEDS ORDERED: TYLENOL PO PRN (15:52)
--- NOTE | 2019-09-04 15:53 | PROVIDER DOCUMENTATION ---
This chart was entered by Annabella Acosta Scribe, acting as scribe for Landen Gordon MD. HPI-General Adult - General Chief Complaint: Extremity Pain Stated Complaint: RT LEG INFECTION ,RT SECOND TOE RED Time Seen by Provider: 09/04/19 14:55 Source: patient Allergies/Adverse Reactions: Patient Allergies Allergy/AdvReac Type Severity Reaction Status Date / Time No Known Allergies Allergy Verified 03/25/19 18:41 Home Medications: Home Medication List Medication Instructions Recorded Confirmed Last Taken Type Tamsulosin [Flomax] 0.4 mg PO WSUPPER 02/09/12 03/25/19 03/24/19 History Gabapentin 300 mg PO TID PRN PRN 09/22/16 03/25/19 03/24/19 History Tramadol HCl 50 mg PO PRN PRN 09/16/17 03/25/19 03/24/19 History Estradiol Vaginal Cream [Estrace 1 applicator VAG DIRECTED #0 09/17/17 03/25/19 03/24/19 Rx Vaginal Cream] Metoclopramide [Reglan] 5 mg PO TID AC tablet 09/17/17 03/25/19 03/24/19 Rx Amiodarone [Cordarone] 100 mg PO DAILY 03/25/19 03/25/19 03/24/19 History Famotidine 20 mg PO WLUNCH 03/25/19 03/25/19 03/24/19 History Polyethylene Glycol 3350 [Miralax] 17 gm PO QAM 03/25/19 03/25/19 03/24/19 H istory Rivaroxaban [Xarelto] 20 mg PO WSUPPER 03/25/19 03/25/19 03/24/19 History Trazodone [Desyrel] 50 mg PO QHS 03/25/19 03/25/19 03/24/19 History Acetaminophen [Tylenol] 650 mg PO Q6H PRN PRN tab 03/31/19 Unknown Rx Amlodipine [Norvasc] 2.5 mg PO DAILY #30 tab 03/31/19 Unknown Rx CephALEXIN [Keflex] 500 mg PO Q12HR #10 cap 03/31/19 Unknown Rx - History of Present Illness -Gen Adult Nature of Presenting Problems: [id number] presents to ED cc redness, tenderness, swelling to right lateral lower leg and right 2nd toe. Pt reports Dr. Salinas amputated the tip of the right great toe about 4 months ago. She denies F/C/N/V/SOB. She is nontoxic in no acute distress upon exam. Location of Pain/Injury: reports: lower extremity (right lateral leg), feet (right 2nd toe) Quality of Pain: reports: aching Severity: reports: moderate Onset/Duration: reports: unsure Timing: reports: still present Context/Activities at Onset: reports: light activity Modifying Factors: worse with: palpation Associated Symptoms: reports: denies symptoms Similar Symptoms Previously?: Yes Recently seen or treated by another doctor?: No Review of Systems - Adult - REVIEW OF SYSTEMS - ADULT Constitutional: reports: see HPI. denies: chills, fever, fatique Eyes: reports: no symptoms reported Ears, Nose, Mouth & Throat: reports: no symptoms reported Cardiovascular: reports: no symptoms reported Respiratory: reports: no symptoms reported Gastrointestinal: reports: no symptoms reported Genitourinary: reports: no symptoms reported Musculoskeletal: reports: see HPI, joint pain (right 2nd toe) Integumentary: reports: see HPI, other (redness to right lateral lower leg) Neurological: reports: no symptoms reported Psychiatric: reports: no symptoms reported Endocrine: reports: no symptoms reported Hematologic/Lymphatic: reports: no symptoms reported Allergic/Immunologic: reports: no symptoms reported All Other Systems: Reviewed and Negative Past History - Adult - PAST MEDICAL HISTORY-ADULT Review of Records: reports: Old Records Reviewed, Nursing Assessment Review, Medications Reviewed, Social history reviewed & non-contributory. Major Childhood Illnesses: reports: denies history Cardiovascular: reports: A-Fib, CAD, CHF, HTN, murmur Respiratory: reports: denies history Gastrointestinal: reports: GERD Obstetrical/Gynecological: reports: denies history Genitourinary: reports: denies history Musculoskeletal: reports: other (neuropathy) Neurological: reports: denies history Psychiatric: reports: denies history Endocrine/Immune: reports: RA Other Conditions: reports: denies history - PRIOR SURGERIES/PROCEDURES Surgical/Procedure History: reports: appendectomy, orthopedic (extremity) (toe Sx ), other (cataract Sx, eye Sx to correct a cross-eyed state, exploratory). denies: recent surgery - IMMUNIZATION STATUS Childhood Immunizations: UTD Flu Vaccine: UTD - FAMILY HISTORY Family History: reviewed, not pertinent Physical Exam-General - PHYSICAL EXAM-ADULT Initial Vital Signs Reviewed: Yes - CONSTITUTIONAL General Appearance: appears well, alert. negative: anxious, combative - EYES Eyes: PERRL/EOMI, pink conjunctivae. negative: photophobia - HEAD, EARS, NOSE, MOUTH & THROAT HENMT: normocephalic/atraumatic, moist mucous membranes. negative: angioedema - NECK Neck: non-tender, full range of motion, supple, normal inspection. negative: lymphadenopathy - RESPIRATORY Respiratory: chest non-tender, lungs clear, normal breath sounds. negative: rhonchi, wheezing - CARDIOVASCULAR Cardiovascular: normal peripheral pulses, regular rate, rhythm, no edema, no murmur. negative: bradycardia, tachycardia - GASTROINTESTINAL (ABDOMEN) Abdominal Exam: normal bowel sounds, non tender, soft. negative: rebound - LYMPHATIC Lymphatic: no adenopathy. negative: enlargement - MUSCULOSKELETAL Back Exam: normal inspection, no CVA tenderness, no vertebral tenderness Extremity: deformity (right and left 2nd toes overlap both great toes), erythema (right lateral lower leg and right 2nd toe), swelling (right lateral lower leg and right 2nd toe), tenderness (right lateral lower leg and right 2nd toe). negative: pedal edema - SKIN Integumentary: normal turgor, warm (right lateral lower leg and right 2nd toe), other (small sore to bottom of right 2nd toe). negative: jaundice - NEUROLOGIC Neurologic: industrial sewer II-XII nml as tested, grossly normal - PSYCHIATRIC Psych/Mental Status: normal mood/affect, oriented x 3. negative: anxious Progress - PLAN OF CARE/RESULTS Progress/Plan/Lab Results: Vital Signs - 8 hr 09/04/19 14:46 Temperature 97.6 F Pulse Rate 86 Respiratory Rate 19 Blood Pressure 153/68 O2 Sat by Pulse Oximetry 96 Orders Category Date Time Status FOOT COMPLETE RIGHT [RAD] Stat Exams 09/04/19 15:11 Ordered CBC WITH ELECTRONIC DIFF [HEME] Stat Lab 09/04/19 14:55 Uncollected CMP [COMPREHENSIVE METABOLIC PANEL] [CHEM] Stat Lab 09/04/19 14:55 Uncollected Clindamycin Med 09/04/19 15:12 Discontinued 300 mg IV NOW ONE Result Diagrams: 09/04/19 15:20 - XRAY 1 XRAY: Right XRAY Study: Foot Impression: See EMR Report ( IMPRESSION: No evidence of osteomyelitis in the second toe. Electronically signed by Chilango Layton 09/04/2019 3:34 PM) - CONSULTS/PCP/HOSPITALIST Notification #1 *Consult/PCP/Hospitalist*: Dr. Man Time Discussed: 15:50 Consult Disposition: Will see in ED, Admit Departure - Departure Date of Disposition Decision: 09/04/19 Time of Disposition Decision: 15:43 DIAGNOSIS: Cellulitis of toe of right foot Cellulitis Qualifiers: Site of cellulitis: extremity Site of cellulitis of extremity: lower extremity Laterality: right Qualified Code(s): L03.115 - Cellulitis of right lower limb Disposition: ADMITTED INPATIENT 09 Certified Medical Emergency: Emergent Condition: Fair Referrals and Follow-Ups: Michael Lamb MD [Primary Care Provider] - - Critical Care Note This patient required my direct & personal management of CC.: No Attestation - Physician/ SHIN Attestation Patient care was provided by Advanced Practice Provider:: No The physician spent face to face time with patient:: Yes Advanced Practice Provider documentation review:: Supervising physician onsite and consulted in the evaluation and care of this patient. The physician did have a face to face encounter with the patient. This chart was documented by the indicated scribe, (Annabella Acosta Scribe) and accurately reflects the services I performed and decisions made by me, Landen Gordon MD, as attested by the provider's signature.
[2019-09-04 16:00] LABS: ALB/GLOB RATIO 1.7; ALBUMIN 4.2 g/dL (3.5-5.0); CALCIUM 9.5 mg/dL (8.8-10.2); POTASSIUM 4.1 mmol/L (3.5-5.1); TOTAL BILIRUBIN 0.32 mg/dL (0.20-1.00); TOTAL PROTEIN 6.7 g/dL (6.3-8.3)
[2019-09-04] MEDS ORDERED: CLINDAMYCIN 300 MG in NS 50 ML IV ONE (17:00)
--- NOTE | 2019-09-04 17:02 | HISTORY AND PHYSICAL ---
CHIEF COMPLAINT: Red toe. HISTORY OF PRESENT ILLNESS: This 89-year-old white female says that she has had a red second toe on the right foot for approximately 3 months. She had an amputation of her fourth toe on the right foot in March of last year. She states that she has been on antibiotics multiple times since that time. She saw Dr. Salinas last Thursday who did not feel that her toe was infected. She had a hard shaking chill yesterday, although she did not measure her fever and then today she noted that there was a redness not only of her second toe, but also extending from the ankle to just below the knee. She came to the emergency room and had a high white cell count was admitted for treatment of cellulitis and the possibility of another episode of osteomyelitis involving the second toe. PAST MEDICAL HISTORY: 1. Hypertension. The patient presently takes no medication for that. 2. Degenerative arthritis. 3. Gastroesophageal reflux disease. 4. History of neuropathy with lumbar stenosis. 5. Paroxysmal atrial fibrillation on chronic anticoagulation. 6. History of osteomyelitis. 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 8. History of cataracts. PAST SURGICAL HISTORY: 1. History of toe amputation due to osteomyelitis. 2. Cholecystectomy. 3. Total abdominal hysterectomy. 4. Exploratory laparotomy. 5. Cataract surgery. 6. Surgeries on the eyes for the ophthalmic aneurysm and one also to place in childhood. SOCIAL HISTORY: The patient lives at home by herself. She is cared for by her son. The patient is a lifelong nonsmoker and nonuser of alcohol. FAMILY HISTORY: Family history is noncontributory to the history of present illness. ALLERGIES: No known drug allergies. OBJECTIVE: Vital Signs: 97.6, 86, 19, 153/68, 96% saturated on room air. General: She is a well-developed, well-nourished white female in no acute distress. 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 Also, the medial portion of her left sclera is reddish pink, which she says is improving from a recent scleral hemorrhage. Neck: No carotid bruits or JVD. Lungs: Clear to auscultation. Cardiovascular: Regular, approximately 90 beats per minute the time of my examination. Abdomen: Bowel sounds are present. Extremities: There is no peripheral edema. Skin: The patient's second toe does not have any nail bed to it. The medial distal pad of that toe has a small ulceration which does not appear to be weeping and is dry. The toes red, but is not warm to the touch. The patient has a macular erythematous rash from her ankle on the right side extending up to just below the knee. There are no open lesions on the leg or ankle that I can see. Neurologic: Cranial nerves appear to be intact with the exception of the dysconjugate gaze which is an old finding. She has not had any focal motor neurological deficits and her speech is clear. LABORATORY: White cell count is 15.6, hemoglobin 12.4, BUN 35, creatinine 1.0, glucose is 155. ASSESSMENT/PLAN: 1. The patient at the very least appears to have a cellulitis involving the right second toe and possibly even with some extension up into the leg. I am going to start her on vancomycin and clindamycin, as this is what was used on her for previous infections of this sort. I have also put in a consult for Dr. Salinas for tomorrow since he has been following this case along. 2. As noted, the patient's blood sugar was slightly elevated. We may need to check this out some patterned sugars through her hospitalization. 3. Although the patient was taken off of hypertensive medication, her blood pressure was relatively elevated in the emergency room. We will continue to monitor her blood pressure and apply medications as appropriate. 4. Consideration for a vascular study of the digits may be in order next week. cc: Jean Man MD
[2019-09-04] MEDS: VANCOMYCIN 1 GM/NS 1 GM/250 ML IVPB IV SCH (22:22)
[2019-09-05] MEDS: CLINDAMYCIN 300 MG in NS 50 ML IV SCH ×3 (01:59→17:00)
[2019-09-05 07:02] LABS: URINE SOURCE CLEAN CATCH
[2019-09-05 07:09] LABS: BILIRUBIN URINE NEGATIVE (NEGATIVE); BLOOD URINE TRACE (NEGATIVE); COLOR YELLOW; GLUCOSE URINE NEGATIVE (NEGATIVE); KETONE URINE 10 mg/dL (NEGATIVE); LEUKOCYTES URINE LARGE (NEGATIVE); NITRITE URINE NEGATIVE (NEGATIVE); PH URINE 6.5; PROTEIN URINE 30 mg/dL (NEGATIVE); SP GRAVITY URINE 1.018; TURBIDITY URINE HAZY (CLEAR); UROBILINOGEN URINE NORMAL (NORMAL)
[2019-09-05 07:10] LABS: UR EPITHELIAL CELLS <10 /HPF (<10); URINE BACTERIA 2+ /HPF; URINE RBC <10 /HPF (<10); URINE WBC TNTC /HPF (<10)
[2019-09-05] MEDS: ZOFRAN IV PRN (10:56)
--- NOTE | 2019-09-05 14:15 | ORTHOPAEDICS CONSULTATION ---
DATE: 09/05/2019 CHIEF COMPLAINT: Redness in her right toe and chills. HISTORY OF PRESENT ILLNESS: This is an 89-year-old female who came to the hospital for an infection in her right foot that has been going on for about 3 months. She reports she has seen Dr. Salinas about a week ago on last Thursday, and he did not feel like it was infected at that time. She reports she was taking multiple antibiotics, and it has not gotten better. On Thursday, she began developing chills and was not feeling well. She came to the emergency department, and it was noted that she had a higher white blood cell count and was admitted for treatment of her cellulitis. 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 PAST SURGICAL HISTORY: 1. She has had a couple of toe amputations due to osteomyelitis in the past. 2. Cholecystectomy. 3. Hysterectomy. 4. Laparotomy exploratory. 5. Cataract surgery. 6. 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 ALLERGIES: There are no known drug allergies. LABORATORY: White blood cells 15.63, red blood cell 4.4, hemoglobin 12.4, hematocrit 38.3, and platelets 256,000. Sodium 135, potassium 4.1, chloride 97, BUN 35, creatinine 1.0, and glucose 155. Urine does show positive for leukocytes and white blood cells, trace blood and some protein. PHYSICAL EXAMINATION: Vital Signs: Temperature 97.4 degrees, pulse rate 80, respiratory rate 16, blood pressure 144/48, and oxygen saturations 98% on room air. General: Patient is awake, alert and sitting in the bed in no acute distress. HEENT: Head is atraumatic, normocephalic. Eyes are equal, round, and reactive. The right eye seems to navigate externally. Neck: Supple. Cardiovascular: Regular rate and rhythm at this time. Abdomen: Soft and nontender. Extremities: Right lower extremity exam shows there is redness throughout the right lower extremity. The right 2nd toe is very erythematous with no discharge at this time. There is decreased sensation. There is however good pedal pulses. ASSESSMENT: Cellulitis right lower extremity, and right 2nd toe with possible osteomyelitis. PLAN: We will go ahead and keep her NPO tonight. I have talked with Dr. Salinas. He will come see her tomorrow, and see if she is getting any better with these IV antibiotics. If she continues to decline, he may have to excise the toe. We will check back on her tomorrow to see how she is doing. Dictated by MANN Morse for Saulo Salinas MD cc: MANN Morse MD Russell T. Barr, MD
[2019-09-05] MEDS: VANCOMYCIN 1 GM/NS 1 GM/250 ML IVPB IV SCH (22:20)
[2019-09-06] MEDS: CLINDAMYCIN 300 MG in NS 50 ML IV SCH (01:50)
[2019-09-06] MEDS: ZOFRAN IV PRN (05:31)
[2019-09-06 05:56] LABS: BASO# 0.02 X1000 (0.0-0.2); BASO% 0.3 % (0.0-0.8); EOS# 0.06 X1000 (0.0-0.7); HEMATOCRIT 38.3 % (37.0-47.0); HEMOGLOBIN 12.3 g/dL (12.0-16.0); IMM GRAN# 0.04 X1000 (0.0-0.04); IMM GRAN% 0.7 % (0.0-0.5); LYMPH# 1.27 X1000 (1.2-3.4); LYMPH% 21.2 % (20.5-51.1); MCHC 32.1 g/dL (33-37); MCV 87.2 FL (81-99); MONO# 0.54 X1000 (0.11-0.59); MPV 9.9 FL (7.4-10.4); NEUT# 4.07 X1000 (1.4-6.5); NEUT% 67.8 % (42.2-75.2); PLT 286 X1000 (130-400); RBC 4.39 XMIL (4.2-5.4)
[2019-09-06 06:06] LABS: INR 1.08; PROTIME 14.1 Seconds (11.0-16.0)
--- NOTE | 2019-09-06 07:29 | ORTHOPAEDICS PROGRESS NOTE ---
DATE: 09/06/2019 SUBJECTIVE: Ms. Bellamy is lying in her hospital bed this morning. Overall, she is not really complaining of any pain. She says her foot is feeling well. OBJECTIVE: On right lower extremity exam, she does have some erythema to the second toe, and there is some slight erythema to the leg, really from about the ankle to the knee. It is just slightly warmer than the left side, but not by much. She does have a good 2+ DP pulse. There are no open sores anywhere. I do not see any drainage. There is not hardly any swelling. ASSESSMENT: Right lower extremity cellulitis. PLAN: I discussed with Ms. Bellamy about what all was going on. I think she does have a component of cellulitis, and it may be coming from that second toe. On her radiographs of the second toe, I did not see any bony erosions, and she has healed her small wound that she had on that second toe as well over the past few weeks. I do not see any areas of ulceration or discharge or really any swelling to the toe either, which is a little odd. In times past when she has had an infected toe, mainly the fourth, it was swollen and very red and you could tell it was infected. Here, the second toe is not really swollen at all, it is just erythematous. She says that the IV antibiotics have helped, and that the redness of the toe has gotten better, so at this point, I am going to watch it for another day, and see if she will continue to improve. I do think we should consider getting a venous study, looking for reflux of her veins. I am not sure an arterial study would be as helpful since she does have good pulses. We will check her again in the morning, but we were not going to plan on any surgical intervention for today. cc: MD Michael Hines MD
[2019-09-06] MEDS ORDERED: NEURONTIN PO PRN (08:11)
[2019-09-06] MEDS ORDERED: ULTRAM PO PRN (08:11)
[2019-09-06] MEDS: ROCEPHIN 1 GM in NS 50 ML IV SCH (10:04)
[2019-09-06] MEDS: MIRALAX PO SCH (10:06)
[2019-09-06] MEDS: SEPTRA DS PO SCH ×2 (10:07→22:13)
[2019-09-06] MEDS: CORDARONE PO SCH (10:07)
[2019-09-06] MEDS: NORVASC PO SCH (10:08)
[2019-09-06] MEDS: REGLAN PO SCH ×2 (10:08→16:55)
[2019-09-06] MEDS: PEPCID PO SCH (13:51)
[2019-09-06] MEDS: XARELTO PO SCH (16:56)
[2019-09-06] MEDS: FLOMAX PO SCH (16:56)
[2019-09-06] MEDS: DESYREL PO SCH (22:13)
[2019-09-06] MEDS: ZOFRAN ODT PO PRN (23:41)
--- NOTE | 2019-09-07 07:44 | ORTHOPAEDICS PROGRESS NOTE ---
DATE: 09/07/2019 SUBJECTIVE: Ms. Blake Bellamy lying in bed this morning. Overall, she is feeling fine, not really complaining of any pain. OBJECTIVE: Right lower extremity exam: A lot of her erythema is gone out of the right lower extremity. She has just a little bit of erythema to the very tip of what is left of the second toe. There is no drainage there. There is no swelling. She has a little bit of more of a darker color to the right leg versus the left. It does not look like marcial erythema. She does have a good 2+ DP pulse, not a great PT pulse. ASSESSMENT: Right lower extremity cellulitis. PLAN: I discussed with Ms. Blake Bellamy about her foot. I think her cellulitis has come down very nicely. I do want to go ahead and order arterial study. She does have a good DP pulse which we palpated even yesterday. She does not have a great PT pulse, and 1 wonder if she is shunting blood away from her PT to her DP. So, I am going to go ahead and order an arterial study today. I have already talked to the vascular lab; they can do that today. I feel like she has gotten a lot better as far as the erythema to the right lower extremity. So, we will talk with the primary team about setting up antibiotics for outpatient, and we will check on her after the vascular studies. cc: MD Michael Hines MD
[2019-09-07] MEDS: SEPTRA DS PO SCH ×2 (08:33→22:02)
[2019-09-07] MEDS: ROCEPHIN 1 GM in NS 50 ML IV SCH (08:33)
[2019-09-07] MEDS: NORVASC PO SCH (08:33)
[2019-09-07] MEDS: CORDARONE PO SCH (08:33)
[2019-09-07] MEDS: MIRALAX PO SCH (08:34)
[2019-09-07] MEDS: REGLAN PO SCH ×3 (09:09→16:42)
[2019-09-07] MEDS: PEPCID PO SCH (12:11)
[2019-09-07] MEDS: XARELTO PO SCH (16:42)
[2019-09-07] MEDS: FLOMAX PO SCH (16:42)
[2019-09-07] MEDS: DESYREL PO SCH (22:02)
[2019-09-07] MEDS: ZOFRAN ODT PO PRN (23:42)
[2019-09-08] MEDS: REGLAN PO SCH (05:59)
[2019-09-08 07:16] LABS: BASO# 0.05 X1000 (0.0-0.2); BASO% 0.8 % (0.0-0.8); EOS# 0.13 X1000 (0.0-0.7); EOS% 2.1 % (0.0-10.0); HEMATOCRIT 37.4 % (37.0-47.0); HEMOGLOBIN 12.2 g/dL (12.0-16.0); IMM GRAN# 0.08 X1000 (0.0-0.04); IMM GRAN% 1.3 % (0.0-0.5); LYMPH# 1.78 X1000 (1.2-3.4); LYMPH% 28.6 % (20.5-51.1); MCH 28.3 PG (27-31); MCHC 32.6 g/dL (33-37); MCV 86.8 FL (81-99); MONO# 0.54 X1000 (0.11-0.59); MONO% 8.7 % (1.7-9.3); MPV 9.5 FL (7.4-10.4); NEUT# 3.64 X1000 (1.4-6.5); NEUT% 58.5 % (42.2-75.2); PLT 354 X1000 (130-400); RBC 4.31 XMIL (4.2-5.4); RDW 14.9 % (11.5-14.5); WBC 6.22 X1000 (4.8-10.8)
[2019-09-08 07:45] VITALS: BP 119/40
[2019-09-08] MEDS: CORDARONE PO SCH (08:15)
[2019-09-08] MEDS: SEPTRA DS PO SCH (08:15)
[2019-09-08] MEDS: NORVASC PO SCH (08:15)
[2019-09-08] MEDS: MIRALAX PO SCH (08:16)
--- NOTE | 2019-09-08 14:43 | VASCULAR LAB ---
PROCEDURE NAME: Arterial Bilateral Legs - 09/07/2019 PROCEDURE: Lower extremity arterial study at rest. FINDINGS: The patient was referred by Dr. Salinas because of decreased pulses. The right AB index is recorded at 1.1, left 0.95. The PVRs appear normal. The PPGs in the toes show pulsatile flow. INTERPRETATION: Essentially normal resting lower extremity arterial study. cc: MD Saulo Valdes MD
--- NOTE | 2019-09-08 15:32 | DISCHARGE SUMMARY ---
ADMISSION DATE: 09/04/2019 DISCHARGE DATE: 09/08/2019 FINAL DIAGNOSES: 1. Cellulitis of the right second toe. 2. Hypertension. 3. Peripheral neuropathy. 4. Paroxysmal atrial fibrillation on anticoagulation. PRESENT ILLNESS: Ms. Pryor is an 89-year-old white female who presented to the emergency room with a red second toe. Approximately a week prior to admission, she saw her foot surgeon, Dr. Salinas who did not feel the toe was infected at that time. She has had intermittent redness of that toe and also previously had multiple toe amputations including the distal phalanx of the second toe previously. Her underlying condition is peripheral neuropathy which predisposes to infection. The day before, she had a hard shaking chill and in the morning of admission noticed that the redness had extended from the toe to the ankle and almost to the knee. In the emergency room, she was noted to have an elevated white count of 16,000. PHYSICAL EXAMINATION: Revealed an unremarkable great toe on the right foot. The second toe had a previous distal phalanx amputation and a medial plantar pad of the toe has a very small ulceration which appeared dry. A patchy rash was noted from her ankle just below the knee. DATA BASE: White blood count 15,600, hemoglobin 12.4, hematocrit 38.3%. Chemistry profile is unremarkable except for a glucose of 165. Urinalysis did show large leukocytes and too numerous to count white blood cells but subsequent culture was negative. HOSPITAL COURSE: She was admitted and started on intravenous vancomycin and clindamycin. Previous cultures of the fourth toe last year had put on methicillin-resistant Staph aureus. X-ray of the toe was unremarkable without obvious osteomyelitis. On Thursday morning, she was nauseated and I noticed that her home medications had not been resumed and restarted her metoclopramide. The following day, she felt better and had improved appetite. She maintained her mobility, getting up and walking to the bathroom numerous times a day. Her right toe lymphangitis rapidly improved and was essentially gone by the second hospital day. The redness nearly resolved and she has been off IV antibiotics and on oral trimethoprim sulfa for 24 hours and I feel this will cover her cellulitis and the possibility of a urinary tract infection as well. She is to return to my office in 8-14 days for transition of care visit. Dr. Salinas's office will give her instructions for followup as well. DISCHARGE MEDICATIONS: 1. Amlodipine 2.5 mg daily. 2. Trimethoprim sulfa double strength tablets 1 twice a day for 7 days. 3. Tamsulosin 0.4 mg at bedtime. 4. Gabapentin 300 mg three times a day. 5. Tramadol 50 mg q.6 hours p.r.n. for pain. 6. Metoclopramide 5 mg three times a day before meals. 7. Famotidine 20 mg with lunch daily. 8. MiraLAX 17 grams daily. 9. Trazodone 50 mg at bedtime. 10.Amiodarone 100 mg daily. 11.Rivaroxaban 20 mg with supper daily. cc: Michael Lamb MD
== END 2019-09-08 10:51 | disposition home or self-care (01) | DRG 603 ==
LOC: ED 14:29 → EDIPHOLD 16:49 → 4N 18:45
PROVIDERS: ADMIT Internal Medicine; ATTEND Internal Medicine